=== PATIENT | female | born 1955 | race American Indian/Alaskan Native ===

== ENCOUNTER 2017-08-13 18:32 | Emergency (ER) | payer MEDICARE ==
[2017-08-13 20:25] LABS: BUN/Creatinine Ratio 22; Blood Urea Nitrogen 11 mg/dL (7-17); Calcium 9.1 mg/dL (8.4-10.2); Hemolysis Index 75
[2017-08-13 20:32] LABS: INR 1.15 (0.87-1.13)
[2017-08-13 21:20] LABS: Basophils % (Auto) 0.7 % (0.0-1.8); Eosinophils # (Auto) 0.1 K/mm3 (0.0-0.4); Eosinophils % (Auto) 1.9 % (0.0-4.3); Hematocrit 31.7 % (30.3-42.9); Lymphocytes % (Auto) 26.8 % (13.4-35.0); Mean Corpuscular HGB Conc 32 % (30-34); Mean Corpuscular Volume 79 fl (79-97); Monocytes # (Auto) 0.4 K/mm3 (0.0-0.8); Monocytes % (Auto) 5.8 % (0.0-7.3); Platelet Count 396 K/mm3 (140-440); Red Blood Count 4.02 M/mm3 (3.65-5.03); Red Cell Distribution Width 18.8 % (13.2-15.2)
[2017-08-13 21:25] LABS: Mean Corpuscular Hemoglobin 25 pg (28-32)
[2017-08-14] MEDS ORDERED: MORPHINE IM ONE (10:27)
[2017-08-14] MEDS ORDERED: ZOFRAN IM ONE (10:27)
--- NOTE | 2017-08-14 10:32 | Emergency Department Report ---
ED Back Pain/Injury HPI - General Chief Complaint: Extremity Injury, Lower Stated Complaint: RIGHT LOWER BACK PAIN Time Seen by Provider: 08/14/17 10:22 Source: patient, family Limitations: No Limitations - History of Present Illness Initial Comments: Patient is 61 years old female history of diabetes hypertension and pacemaker. Presented to the ER with lower back pain for the last 3 days. Patient stated that she woke up 3 days ago with lower back pain that radiated to her right leg. Patient denied any numbness or tingling sensation or weakness. No bowel or bladder incontinence. No fever and patient denied any recent injury. MD Complaint: back pain -: Gradual, days(s) Similar Symptoms Previously: Yes Place: home Radiation: right leg Severity: moderate Quality: sharp Consistency: intermittent Improves With: immobilization Worsens With: movement Context: unknown Associated Symptoms: denies other symptoms, difficulty walking (secondary to pain). denies: weakness, incontinence, fever/chills, headaches, abdominal pain , nausea/vomiting, shortness of breath - Related Data Allergies Allergy/AdvReac Type Severity Reaction Status Date / Time tramadol Allergy Unknown Verified 08/13/17 19:22 ED Review of Systems ROS: Stated complaint: RIGHT LOWER BACK PAIN Other details as noted in HPI Comment: All other systems reviewed and negative Constitutional: denies: chills, fever Respiratory: denies: cough, shortness of breath, SOB with exertion, SOB at rest Gastrointestinal: denies: abdominal pain, nausea, vomiting, diarrhea, constipation, hematemesis Musculoskeletal: back pain. denies: joint swelling, arthralgia, myalgia Neurological: denies: headache, weakness, numbness, paresthesias, confusion, abnormal gait, vertigo ED Past Medical Hx - Past Medical History Previous Medical History?: Yes Hx Diabetes: Yes Additional medical history: pacemaker,anemia - Surgical History Additional Surgical History: CABG - Social History Smoking Status: Never Smoker Substance Use Type: None ED Physical Exam - General Limitations: No Limitations General appearance: alert, in no apparent distress - Head Head exam: Present: atraumatic, normocephalic, normal inspection - Eye Eye exam: Present: normal appearance, PERRL - ENT ENT exam: Present: normal exam, normal orophraynx, mucous membranes moist - Neck Neck exam: Present: normal inspection, full ROM. Absent: tenderness, meningismus, lymphadenopathy, thyromegaly - Respiratory Respiratory exam: Present: normal lung sounds bilaterally. Absent: respiratory distress, wheezes, rales, rhonchi, chest wall tenderness - Cardiovascular Cardiovascular Exam: Present: regular rate, normal rhythm, normal heart sounds - GI/Abdominal GI/Abdominal exam: Present: soft, normal bowel sounds. Absent: distended, tenderness, guarding, rebound, rigid, organomegaly, mass, bruit, pulsatile mass , hernia - Extremities Exam Extremities exam: Present: normal inspection, full ROM, normal capillary refill. Absent: tenderness, pedal edema, calf tenderness - Back Exam Back exam: Present: normal inspection, tenderness, muscle spasm. Absent: CVA tenderness (R), CVA tenderness (L), paraspinal tenderness, vertebral tenderness - Neurological Exam Neurological exam: Present: alert, oriented X3, CN II-XII intact, normal gait, reflexes normal. Absent: motor sensory deficit - Skin Skin exam: Present: warm, intact, normal color ED Course Vital Signs 08/13/17 08/14/17 08/14/17 19:18 00:15 11:31 Temperature 98 F 98.4 F Pulse Rate 82 87 Respiratory 20 20 20 Rate Blood Pressure 131/88 98/64 O2 Sat by Pulse 100 100 Oximetry - Reevaluation(s) Reevaluation #1: 08/14/17 12:58 Patient stated that she is feeling much better after the pain medication. Patient is ambulating to the bathroom in no acute distress. ED Medical Decision Making - Lab Data Result diagrams: 08/13/17 20:56 08/13/17 19:52 - Radiology Data Radiology results: report reviewed Right hip x-ray and lumbosacral x-ray showed no acute abnormalities except for degenerative disease. - Medical Decision Making At this point there is no evidence of acute fracture or acute neurological deficit. I advised patient to follow up with her primary care physician for possible referral to A back surgeon. Critical care attestation.: If time is entered above; I have spent that time in minutes in the direct care of this critically ill patient, excluding procedure time. ED Disposition Clinical Impression: Acute back pain, Sciatica Disposition: - TO HOME OR SELFCARE Is pt being admited?: No Condition: Stable Instructions: Low Back Strain (ED), Sciatica (ED), Lumbar Radiculopathy (ED) Referrals: CORINNE WILKINSON MD [Primary Care Provider] - 3-5 Days
--- NOTE | 2017-08-14 11:18 | XRay Report ---
RIGHT HIP, 2 views: History: Right hip pain. The bony architecture is intact without evidence of fracture or dislocation. No significant soft tissue abnormality is seen. IMPRESSION: Normal right hip.
--- NOTE | 2017-08-14 11:19 | XRay Report ---
LUMBOSACRAL SPINE, 3 VIEWS: History: Back injury Findings: The vertebral bodies, disk spaces and posterior elements are intact. No compression deformity or malalignment. Mild degenerative disc disease and facet arthropathy are identified at all levels. The SI joints are symmetric and unremarkable. Impression: Mild lumbar spondylosis. No evidence for acute injury on x-ray.
[2017-08-14 14:20] VITALS: BP 108/66
== END 2017-08-14 14:39 | disposition home or self-care (01) ==
LOC: ED 18:32
DX: M54.41 Lumbago with sciatica, right side (principal); Z88.8 Allergy status to other drugs, medicaments and biological substances; E11.9 Type 2 diabetes mellitus without complications; Z95.818 Presence of other cardiac implants and grafts; D64.9 Anemia, unspecified; Z95.1 Presence of aortocoronary bypass graft
CPT/HCPCS: 36415; 72100; 73502; 80048; 85025; 85610; 96372; 99284; J2270; J2405

== ENCOUNTER 2017-10-01 16:56 | Inpatient (IN) | payer MEDICARE ==
[2017-10-01] MEDS ORDERED: ASPIRIN PO ONE (17:10)
[2017-10-01] MEDS ORDERED: NITROSTAT SL ONE (17:16)
[2017-10-01 18:24] LABS: Basophils % (Auto) 0.4 % (0.0-1.8); Eosinophils % (Auto) 0.4 % (0.0-4.3); Lymphocytes # (Auto) 2.2 K/mm3 (1.2-5.4); Lymphocytes % (Auto) 20.6 % (13.4-35.0); Mean Corpuscular HGB Conc 30 % (30-34); Mean Corpuscular Volume 76 fl (79-97); Monocytes # (Auto) 0.7 K/mm3 (0.0-0.8); Monocytes % (Auto) 6.4 % (0.0-7.3); Platelet Count 396 K/mm3 (140-440); Red Blood Count 2.31 M/mm3 (3.65-5.03)
[2017-10-01 18:25] LABS: BUN/Creatinine Ratio 32; Blood Urea Nitrogen 16 mg/dL (7-17); Hemolysis Index 2
[2017-10-01 18:34] LABS: Hemoglobin 5.3 gm/dl (10.1-14.3)
[2017-10-01 18:35] LABS: Hematocrit 17.7 % (30.3-42.9); Mean Corpuscular Hemoglobin 23 pg (28-32); Red Cell Distribution Width 22.8 % (13.2-15.2)
[2017-10-01 18:44] LABS: INR 2.63 (0.87-1.13)
[2017-10-01] MEDS ORDERED: NACL 0.9% 500 ML 500 ML IV ONE (19:33)
--- NOTE | 2017-10-01 19:45 | Emergency Department Report ---
ED General Adult HPI - General Chief complaint: Chest Pain Stated complaint: CP Time Seen by Provider: 10/01/17 19:12 Source: patient Mode of arrival: Ambulatory Limitations: No Limitations - History of Present Illness Initial comments: Patient is a 62-year-old asthmatic female who is presenting with chest discomfort. Patient states she's having for the past week exertional chest pain shortness of breath. Patient has had episodes of anemia in the past and has had several blood transfusions. Patient has [facility] and has not had any formal diagnosis OY her hemoglobin is so low. Patient denies any bloody stools dark tarry stools at this time. Severity scale (0 -10): 6 Improves with: none Worsens with: movement - Related Data Previous Rx's Medication Instructions Recorded Last Taken Type HYDROcodone/APAP 5-325 [[place] 1 each PO Q6HR PRN #14 tablet 08/14/17 Unknown Rx 5/325] Metaxalone [Skelaxin] 800 mg PO TID #30 tablet 08/14/17 Unknown Rx Ondansetron [Zofran Odt] 4 mg PO Q8HR PRN #14 tab.rapdis 08/14/17 Unknown Rx Prednisone [predniSONE ([place]) ER 40 mg PO QDAY #40 tablet. 08/14/17 Unknown Rx TAB] Allergies Allergy/AdvReac Type Severity Reaction Status Date / Time tramadol Allergy Unknown Verified 08/13/17 19:22 ED Review of Systems ROS: Stated complaint: CP Other details as noted in HPI Comment: All other systems reviewed and negative ED Past Medical Hx - Past Medical History Hx Diabetes: Yes Additional medical history: pacemaker,anemia - Surgical History Additional Surgical History: CABG - Social History Smoking Status: Never Smoker Substance Use Type: None - Medications Home Medications: Home Medications Medication Instructions Recorded Confirmed Last Taken Type HYDROcodone/APAP 5-325 [[place] 1 each PO Q6HR PRN #14 tablet 08/14/17 Unknown Rx 5/325] Metaxalone [Skelaxin] 800 mg PO TID #30 tablet 08/14/17 Unknown Rx Ondansetron [Zofran Odt] 4 mg PO Q8HR PRN #14 tab.rapdis 08/14/17 Unknown Rx Prednisone [predniSONE ([place]) ER 40 mg PO QDAY #40 tablet. 08/14/17 Unknown Rx TAB] ED Physical Exam - General Limitations: No Limitations General appearance: alert, in no apparent distress - Head Head exam: Present: atraumatic, normocephalic - Eye Eye exam: Present: normal appearance - ENT ENT exam: Present: mucous membranes moist - Neck Neck exam: Present: normal inspection - Respiratory Respiratory exam: Present: normal lung sounds bilaterally. Absent: respiratory distress, wheezes, rales - Cardiovascular Cardiovascular Exam: Present: regular rate, normal rhythm. Absent: systolic murmur, diastolic murmur, rubs, gallop - GI/Abdominal GI/Abdominal exam: Present: soft, normal bowel sounds - Extremities Exam Extremities exam: Present: normal inspection - Back Exam Back exam: Present: normal inspection - Neurological Exam Neurological exam: Present: alert, oriented X3 - Psychiatric Psychiatric exam: Present: normal affect, normal mood - Skin Skin exam: Present: warm, dry, intact, normal color. Absent: rash ED Course Vital Signs 10/01/17 10/01/17 17:07 18:33 Temperature 98.4 F 98.9 F Pulse Rate 111 H 100 H Respiratory 22 18 Rate Blood Pressure 159/78 Blood Pressure 92/57 [Left] O2 Sat by Pulse 96 100 Oximetry ED Medical Decision Making - Lab Data Result diagrams: 10/01/17 17:15 10/01/17 17:15 Lab Results 10/01/17 10/01/17 10/01/17 Range/Units 17:15 17:15 18:01 WBC 10.5 (4.5-11.0) K/mm3 RBC 2.31 L (3.65-5.03) M/mm3 Hgb 5.3 L* (10.1-14.3) gm/dl Hct 17.7 L* (30.3-42.9) % MCV 76 L (79-97) fl MCH 23 L (28-32) pg MCHC 30 (30-34) % RDW 22.8 H (13.2-15.2) % Plt Count 396 (140-440) K/mm3 Lymph % (Auto) 20.6 (13.4-35.0) % [place] % (Auto) 6.4 (0.0-7.3) % Eos % (Auto) 0.4 (0.0-4.3) % Baso % (Auto) 0.4 (0.0-1.8) % Lymph # 2.2 (1.2-5.4) K/mm3 [place] # 0.7 (0.0-0.8) K/mm3 Eos # 0.0 (0.0-0.4) K/mm3 Baso # 0.0 (0.0-0.1) K/mm3 Seg Neutrophils % 72.2 H (40.0-70.0) % Seg Neutrophils # 7.6 (1.8-7.7) K/mm3 PT 29.9 H (12.2-14.9) Sec. INR 2.63 H (0.87-1.13) Sodium 140 (137-145) mmol/L Potassium 3.5 L (3.6-5.0) mmol/L Chloride 100.1 (98-107) mmol/L Carbon Dioxide 21 L (22-30) mmol/L Anion Gap 22 mmol/L BUN 16 (7-17) mg/dL Creatinine 0.5 L (0.7-1.2) mg/dL Estimated GFR > 60 ml/min BUN/Creatinine Ratio 32 % Glucose 130 H (65-100) mg/dL Calcium 9.0 (8.4-10.2) mg/dL Troponin T < 0.010 (0.00-0.029) ng/mL NT-Pro-B Natriuret Pep 56.55 (0-900) pg/mL - EKG Data -: EKG Interpreted by Me - EKG Data Interpretation: other (EKG shows sinus rhythm rate of 90 axis is leftward does a right bundle-branch block and a left anterior fascicular block. There is no ST elevations or depressions present time interpretation 1700) - Medical Decision Making Patient is a 62-year-old [place] female past medical history of coronary disease and anemia who is presenting with some chest discomfort shortness of breath on exertion. Patient has a hemoglobin of 5.2. Patient had a IV line was started via ultrasound by me reveals a 20 in the antecubital fossa. Patient had a blood transfusion ordered will be admitted at this time to Dr. Reeves. Critical Care Time: Yes Critical care time in (mins) excluding proc time.: 30 Critical care attestation.: If time is entered above; I have spent that time in minutes in the direct care of this critically ill patient, excluding procedure time. ED Disposition Clinical Impression: Symptomatic anemia Disposition: OP ADMIT IP TO THIS HOSP Is pt being admited?: Yes Does the pt Need Aspirin: No Condition: Poor
--- NOTE | 2017-10-01 20:17 | XRay Report ---
FINAL REPORT EXAM: XR CHEST ROUTINE 2V HISTORY: SOB TECHNIQUE: PA and lateral views of the chest PRIORS: None. FINDINGS: Lines, tubes, and devices: Median sternotomy wires, a prosthetic cardiac valve, and a 3 lead left subclavian pacemaker are noted. Lungs and pleura: Trachea is normal in position. Lungs are clear of infiltrate, pleural effusion, vascular congestion, or pneumothorax. Cardiomediastinal silhouette: Cardiac and mediastinal silhouettes are unremarkable. Other: Bony structures are intact. IMPRESSION: No acute cardiopulmonary process seen.
--- NOTE | 2017-10-01 23:42 | Event Note ---
Date: 10/01/17 See dictated H/p in reports Acute symptomatic anemia Chest pain Asthma muscle spasms CAD DVT prophylaxis
[2017-10-02] MEDS ORDERED: NACL 0.9% 500 ML 500 ML IV ONE (03:00)
[2017-10-02] MEDS ORDERED: ZOFRAN IV PRN (04:02)
[2017-10-02] MEDS ORDERED: DULCOLAX PR PRN (04:02)
[2017-10-02] MEDS ORDERED: MORPHINE IV PRN (04:02)
[2017-10-02] MEDS ORDERED: DILAUDID IV PRN (04:02)
[2017-10-02] MEDS ORDERED: TYLENOL PO PRN (04:02)
[2017-10-02] MEDS ORDERED: MILK OF MAGNESIA PO PRN (04:02)
[2017-10-02] MEDS ORDERED: AMBIEN PO PRN (04:02)
--- NOTE | 2017-10-02 08:39 | History and Physical Report ---
CHIEF COMPLAINT: Left-sided chest pain. HISTORY OF PRESENT ILLNESS: This 62-year-old history of asthma, . The patient had Apparently had upper and lower endoscopy but exact cause could not be found. The patient has hysterectomy, so there is no reason for vaginal bleeding . The patient does not know the cause of her . Stools are brown. PAST MEDICAL HISTORY: Significant for asthma and diabetes . PAST SURGICAL HISTORY: Coronary artery bypass . SOCIAL HISTORY: Does not smoke . FAMILY HISTORY: Hypertension . REVIEW OF SYSTEMS: Significant for chest pain and shortness of breath on exertion. Otherwise, review of systems essentially are negative. No wheezing. A 14-point review of systems done. PHYSICAL EXAMINATION: GENERAL: Elderly female, cooperative during the exam, pale. VITAL SIGNS: Blood pressure is 159/78, temperature is 98.4, pulse is 111, sats are 96%. HEENT: Unremarkable except for conjunctival . NECK: Supple, no lymphadenopathy, no thyromegaly. LUNGS: Clear to auscultation and percussion. . CARDIOVASCULAR: S1, S2 heard. No gallop, no murmur, no rub. Apical impulse in left fifth intercostal space and midclavicular line. ABDOMEN: Soft and benign. No hepatosplenomegaly. No guarding, no rigidity. Hernial orifices are normal. EXTREMITIES: Good pedal pulses. No pedal edema. CENTRAL NERVOUS SYSTEM: Alert and oriented x 4, nonfocal exam. SKIN: Normal. LABORATORY DATA: White count is 10,700, H and H is 10.5 and , platelet count is 396,000. Protime is 29.9, INR is 2.63. Sodium is 140, potassium is 3.5, chloride is 100, bicarbonate is 21, BUN and creatinine 16 and 0.5, glucose is 130, calcium is 9.0. BNP is 56.5. Chest x-ray is normal. No acute findings. ASSESSMENT AND PLAN: 1. Acute anemia, symptomatic. Transfuse 2 units of blood. Iron studies ordered. The patient GI so that we can follow up with GI as outpatient. No vaginal bleeding. The patient had hysterectomy. 2. Asthma. Continue bronchodilators as necessary. 3. Coronary artery disease. The patient to be restarted on aspirin. 4. Muscle spasms. Continue Skelaxin. 5. Deep venous thrombosis prophylaxis, Lovenox 40 mg subcutaneous daily. Also, Hematology/Oncology consult requested. The patient to follow up with Hematology/Oncology and GI as outpatient. JOB# [id number] MIKE/MARNI
[2017-10-02] MEDS: MIRALAX 3350 PO SCH (10:05)
[2017-10-02] MEDS: PEPCID IV SCH ×2 (10:05→21:47)
[2017-10-02] MEDS: NACL 0.9% 1000 ML 1,000 ML IV SCH (10:13)
[2017-10-02 13:06] LABS: Basophils % (Auto) 0.4 % (0.0-1.8); Eosinophils # (Auto) 0.1 K/mm3 (0.0-0.4); Eosinophils % (Auto) 0.7 % (0.0-4.3); Hematocrit 22.1 % (30.3-42.9); Hemoglobin 6.9 gm/dl (10.1-14.3); Lymphocytes # (Auto) 2.1 K/mm3 (1.2-5.4); Lymphocytes % (Auto) 20.4 % (13.4-35.0); Mean Corpuscular HGB Conc 31 % (30-34); Mean Corpuscular Volume 82 fl (79-97); Monocytes # (Auto) 0.8 K/mm3 (0.0-0.8); Monocytes % (Auto) 7.4 % (0.0-7.3); Platelet Count 292 K/mm3 (140-440); Red Blood Count 2.69 M/mm3 (3.65-5.03)
[2017-10-02 13:11] LABS: Mean Corpuscular Hemoglobin 26 pg (28-32); Red Cell Distribution Width 22.2 % (13.2-15.2)
[2017-10-02 13:20] LABS: Alanine Aminotransferase 9 units/L (7-56); Albumin 3.1 g/dL (3.9-5); BUN/Creatinine Ratio 35; Blood Urea Nitrogen 14 mg/dL (7-17); Calcium 8.2 mg/dL (8.4-10.2); Hemolysis Index 0
[2017-10-02] MEDS ORDERED: FERRLECIT 125 MG in NACL 0.9% 100 ML IV ONE (15:00)
[2017-10-02] MEDS ORDERED: NACL 0.9% 500 ML 500 ML IV SCH (16:46)
--- NOTE | 2017-10-02 16:55 | Progress Note ---
Assessment and Plan Assessment and plan: Patient is a 62-year-old woman with history of type 2 diabetes mellitus, hypertension, permanent pacemaker, coronary artery disease status post CABG, Aortic mechanical valve replacement in 2008 on Coumadin and chronic blood loss anemia who had extensive work up in the past including colonoscopy, EGD and even a pill camera but no source was identified ([place] ) who presented to [facility] ED with fatigue and bilateral chest pains. She was found to have hemoglobin of 5.3 2v CXR reported as no acute findings -Acute on chronic blood loss anemia: ordered FOBT, she has constipation, ordered enema but she refused, elected to have miralax, transfuse more blood. -Mechanical Aortic Valve on Coumadin, w/o gross signs of bleeding: very complex medical decision of whether Coumadin should be stopped. -Hypokalemia: replete and recheck -DM type 2, diet controlled: add SSI History Interval history: Patient was seen and examined. Follow-up on current diagnosis of fatigue and chest pains which are improved. Overnight uneventful. Patient denies any shortness breath, nausea/vomiting or severe headaches. Imaging, nursing note, chart, labs and old chart reviewed. Discussed with patient. Hospitalist Physical - Physical exam Narrative exam: GEN: WDWN, NAD, AWAKE, ALERT, ORIENTATED x 3 HEENT: NCAT, EOMI, PERRL, OP Clear NECK: supple, no adenopathy, no thyromegaly, no JVD CVS/HEART: RRR, NORMAL S1S2, pulses present bilaterally CHEST/LUNGS: CTA B, Symmetrical chest expansion, good air entry bilaterally GI/Abdomen: soft, NTND, good bowel sounds, no guarding or rebound /Bladder: no suprapubic tenderness, no CVA or paraspinal tenderness EXT/Skin: no c/c/e, no obvious rash MSK: FROM x 4 Neuro: CN 2-12 grossly intact, no new focal deficits Psych: calm - Constitutional Vitals: Temp Pulse Resp BP Pulse Ox 98.3 F 94 H 20 108/60 96 10/02/17 08:44 10/02/17 10:00 10/02/17 10:00 10/02/17 08:44 10/02/17 10:00 Results - Labs CBC & Chem 7: 10/02/17 12:36 10/02/17 12:36 Labs: Laboratory Last Values WBC 10.4 K/mm3 (4.5-11.0) 10/02/17 12:36 RBC 2.69 M/mm3 (3.65-5.03) L 10/02/17 12:36 Hgb 6.9 gm/dl (10.1-14.3) L 10/02/17 12:36 Hct 22.1 % (30.3-42.9) L 10/02/17 12:36 MCV 82 fl (79-97) 10/02/17 12:36 MCH 26 pg (28-32) L 10/02/17 12:36 MCHC 31 % (30-34) 10/02/17 12:36 RDW 22.2 % (13.2-15.2) H 10/02/17 12:36 Plt Count 292 K/mm3 (140-440) 10/02/17 12:36 Lymph % (Auto) 20.4 % (13.4-35.0) 10/02/17 12:36 [place] % (Auto) 7.4 % (0.0-7.3) H 10/02/17 12:36 Eos % (Auto) 0.7 % (0.0-4.3) 10/02/17 12:36 Baso % (Auto) 0.4 % (0.0-1.8) 10/02/17 12:36 Lymph # 2.1 K/mm3 (1.2-5.4) 10/02/17 12:36 [place] # 0.8 K/mm3 (0.0-0.8) 10/02/17 12:36 Eos # 0.1 K/mm3 (0.0-0.4) 10/02/17 12:36 Baso # 0.0 K/mm3 (0.0-0.1) 10/02/17 12:36 Seg Neutrophils % 71.1 % (40.0-70.0) H 10/02/17 12:36 Seg Neutrophils # 7.4 K/mm3 (1.8-7.7) 10/02/17 12:36 PT 29.9 Sec. (12.2-14.9) H 10/01/17 18:01 INR 2.63 (0.87-1.13) H 10/01/17 18:01 Sodium 137 mmol/L (137-145) 10/02/17 12:36 Potassium 3.3 mmol/L (3.6-5.0) L 10/02/17 12:36 Chloride 99.9 mmol/L (98-107) 10/02/17 12:36 Carbon Dioxide 24 mmol/L (22-30) 10/02/17 12:36 Anion Gap 16 mmol/L 10/02/17 12:36 BUN 14 mg/dL (7-17) 10/02/17 12:36 Creatinine 0.4 mg/dL (0.7-1.2) L 10/02/17 12:36 Estimated GFR > 60 ml/min 10/02/17 12:36 BUN/Creatinine Ratio 35 % 10/02/17 12:36 Glucose 157 mg/dL (65-100) H 10/02/17 12:36 Hemoglobin A1c 5.2 % (4-6) 10/02/17 12:36 Calcium 8.2 mg/dL (8.4-10.2) L 10/02/17 12:36 Total Bilirubin 0.30 mg/dL (0.1-1.2) 10/02/17 12:36 AST 12 units/L (5-40) 10/02/17 12:36 ALT 9 units/L (7-56) 10/02/17 12:36 Alkaline Phosphatase 49 units/L (35-129) 10/02/17 12:36 Lactate Dehydrogenase 223 units/L (91-180) H 10/02/17 12:36 Troponin T < 0.010 ng/mL (0.00-0.029) 10/02/17 12:36 NT-Pro-B Natriuret Pep 56.55 pg/mL (0-900) 10/01/17 17:15 Total Protein 5.7 g/dL (6.3-8.2) L 10/02/17 12:36 Albumin 3.1 g/dL (3.9-5) L 10/02/17 12:36 Albumin/Globulin Ratio 1.2 % 10/02/17 12:36 Blood Type O POSITIVE 10/01/17 20:11 Antibody Screen Negative 10/01/17 20:11 Crossmatch See Detail 10/01/17 20:11
[2017-10-02] MEDS ORDERED: K-DUR PO ONE (17:00)
[2017-10-02] MEDS ORDERED: COUMADIN NO DOSE TODAY PO ONE (17:08)
--- NOTE | 2017-10-02 17:54 | Gastroenterology Consultation ---
History of Present Illness - Reason for Consult Consult date: 10/02/17 Anemia Requesting physician: FOSTER LOPEZ - History of Present Illness The patient is a pleasant 62 yo female admitted with symptomatic (SOB, chest pain) severe anemia. She has a long 8-year history of this, managed by Heme/GI in [place], but had recently moved to [place], and she did not have an MD to check labs or transfuse. She has had anemia (iron-def) for 8 years and has had an extensive GI w/u (EGDs, colons, pill cams etc) despite no gross bleeding. She has been on iron PO, but this has not kept her from needing IV iron about every 6-12 months. She denies melena, hematemesis, N/V, anorexia, or weight loss. She has had no prior GI surgeries, and has had a hysterectomy. She has no family hx of anemia or bleeding disorders. She can not recall a prior bone marrow biopsy. Past History Past Medical History: anemia (chronic iron def anemia requiring transfusion), diabetes Past Surgical History: CABG, hysterectomy, Other (pacemaker) Social history: denies: smoking, alcohol abuse Family history: no significant family history Medications and Allergies Allergies Allergy/AdvReac Type Severity Reaction Status Date / Time tramadol Allergy Unknown Verified 08/13/17 19:22 Home Medications Medication Instructions Recorded Confirmed Last Taken Type Metaxalone [Skelaxin] 800 mg PO TID #30 tablet 08/14/17 10/02/17 1 Month Ago Rx ~09/01/17 Ondansetron [Zofran Odt] 4 mg PO Q8HR PRN #14 tab.rapdis 08/14/17 10/02/17 1 Month Ago Rx ~09/01/17 Active Meds: Active Medications Acetaminophen (Tylenol) 650 mg PO Q4H PRN PRN Reason: Pain MILD(1-3)/Fever >100.5/[facility] Bisacodyl (Dulcolax) 10 mg [place] QDAY PRN PRN Reason: Constipation unrelieved by MOM Famotidine (Pepcid) 20 mg IV BID [facility] Last Admin: 10/02/17 10:05 Dose: 20 mg Hydromorphone HCl (Dilaudid) 0.5 mg IV Q3H PRN PRN Reason: Pain , Severe (7-10) Sodium Chloride (Nacl 0.9% 1000 Ml) 1,000 mls @ 42 mls/hr IV DIRECT [facility] Last Admin: 10/02/17 10:13 Dose: 42 mls/hr Sodium Chloride (Nacl 0.9% 500 Ml) 500 mls @ 0 mls/hr IV ONCE [facility] PRN Reason: As Directed Stop: 10/02/17 23:00 Magnesium Hydroxide (Milk Of Magnesia) 30 ml PO Q4H PRN PRN Reason: Constipation Morphine Sulfate (Morphine) 2 mg IV Q4H PRN PRN Reason: Pain, Moderate (4-6) Ondansetron HCl (Zofran) 4 mg IV Q8H PRN PRN Reason: N/V unrelieved by Reglan Polyethylene Glycol (Miralax [id number]) 17 gm PO QDAY [facility] Last Admin: 10/02/17 10:05 Dose: 17 gm Warfarin Sodium (Coumadin Pharmacy To Dose) 1 each PO PKCONSULT [facility] PRN Reason: Protocol Warfarin Sodium (Coumadin) 7.5 mg PO DAILY@1700 [facility] Zolpidem Tartrate (Ambien) 5 mg PO QHS PRN PRN Reason: Insomnia I HAVE REVIEWED AND RECONCILED THE PATIENT'S MEDICATIONS Review of Systems - Review of Systems All systems: negative (as noted in the HPI.) Exam - Constitutional Vital Signs: Temp Pulse Resp BP Pulse Ox 98.3 F 94 H 20 108/60 96 10/02/17 08:44 10/02/17 10:00 10/02/17 10:00 10/02/17 08:44 10/02/17 10:00 General appearance: no acute distress - EENT Eyes: PERRL, EOM intact ENT: hearing intact, clear oral mucosa - Neck Neck: supple, normal ROM - Respiratory Respiratory effort: normal, other (Pacemaker present) Respiratory: bilateral: CTA - Cardiovascular Rhythm: regular Heart Sounds: Present: S1 & S2 Extremities: no ischemia, No edema - Gastrointestinal General gastrointestinal: Present: soft, non-tender, non-distended - Integumentary Integumentary: Present: clear, warm, dry - Neurologic Neurological: alert and oriented x3 - Labs CBC & Chem 7: 10/02/17 12:36 10/02/17 12:36 Lab Results: Laboratory Results - last 24 hr 10/01/17 10/01/17 10/01/17 17:15 17:15 18:01 WBC 10.5 RBC 2.31 L Hgb 5.3 L* Hct 17.7 L* MCV 76 L MCH 23 L MCHC 30 RDW 22.8 H Plt Count 396 Lymph % (Auto) 20.6 [place] % (Auto) 6.4 Eos % (Auto) 0.4 Baso % (Auto) 0.4 Lymph # 2.2 [place] # 0.7 Eos # 0.0 Baso # 0.0 Seg Neutrophils % 72.2 H Seg Neutrophils # 7.6 PT 29.9 H INR 2.63 H Sodium 140 Potassium 3.5 L Chloride 100.1 Carbon Dioxide 21 L Anion Gap 22 BUN 16 Creatinine 0.5 L Estimated GFR > 60 BUN/Creatinine Ratio 32 Glucose 130 H Hemoglobin A1c Calcium 9.0 Ferritin Total Bilirubin AST ALT Alkaline Phosphatase Lactate Dehydrogenase Troponin T < 0.010 NT-Pro-B Natriuret Pep 56.55 Total Protein Albumin Albumin/Globulin Ratio Blood Type Antibody Screen Crossmatch 10/01/17 10/01/17 10/01/17 20:11 20:11 22:58 WBC RBC Hgb Hct MCV MCH MCHC RDW Plt Count Lymph % (Auto) [place] % (Auto) Eos % (Auto) Baso % (Auto) Lymph # [place] # Eos # Baso # Seg Neutrophils % Seg Neutrophils # PT INR Sodium Potassium Chloride Carbon Dioxide Anion Gap BUN Creatinine Estimated GFR BUN/Creatinine Ratio Glucose Hemoglobin A1c Calcium Ferritin Total Bilirubin AST ALT Alkaline Phosphatase Lactate Dehydrogenase Troponin T < 0.010 < 0.010 NT-Pro-B Natriuret Pep Total Protein Albumin Albumin/Globulin Ratio Blood Type O POSITIVE Antibody Screen Negative Crossmatch See Detail 10/02/17 10/02/17 10/02/17 12:36 12:36 12:36 WBC 10.4 RBC 2.69 L Hgb 6.9 L Hct 22.1 L MCV 82 MCH 26 L MCHC 31 RDW 22.2 H Plt Count 292 Lymph % (Auto) 20.4 [place] % (Auto) 7.4 H Eos % (Auto) 0.7 Baso % (Auto) 0.4 Lymph # 2.1 [place] # 0.8 Eos # 0.1 Baso # 0.0 Seg Neutrophils % 71.1 H Seg Neutrophils # 7.4 PT INR Sodium 137 Potassium 3.3 L Chloride 99.9 Carbon Dioxide 24 Anion Gap 16 BUN 14 Creatinine 0.4 L Estimated GFR > 60 BUN/Creatinine Ratio 35 Glucose 157 H Hemoglobin A1c 5.2 Calcium 8.2 L Ferritin Total Bilirubin 0.30 AST 12 ALT 9 Alkaline Phosphatase 49 Lactate Dehydrogenase Troponin T NT-Pro-B Natriuret Pep Total Protein 5.7 L Albumin 3.1 L Albumin/Globulin Ratio 1.2 Blood Type Antibody Screen Crossmatch 10/02/17 10/02/17 10/02/17 12:36 12:36 16:44 WBC RBC Hgb Hct MCV MCH MCHC RDW Plt Count Lymph % (Auto) [place] % (Auto) Eos % (Auto) Baso % (Auto) Lymph # [place] # Eos # Baso # Seg Neutrophils % Seg Neutrophils # PT INR Sodium Potassium Chloride Carbon Dioxide Anion Gap BUN Creatinine Estimated GFR BUN/Creatinine Ratio Glucose Hemoglobin A1c Calcium Ferritin Total Bilirubin AST ALT Alkaline Phosphatase Lactate Dehydrogenase 223 H Troponin T < 0.010 < 0.010 NT-Pro-B Natriuret Pep Total Protein Albumin Albumin/Globulin Ratio Blood Type Antibody Screen Crossmatch 10/02/17 16:44 WBC RBC Hgb Hct MCV MCH MCHC RDW Plt Count Lymph % (Auto) [place] % (Auto) Eos % (Auto) Baso % (Auto) Lymph # [place] # Eos # Baso # Seg Neutrophils % Seg Neutrophils # PT INR Sodium Potassium Chloride Carbon Dioxide Anion Gap BUN Creatinine Estimated GFR BUN/Creatinine Ratio Glucose Hemoglobin A1c Calcium Ferritin 20.3 Total Bilirubin AST ALT Alkaline Phosphatase Lactate Dehydrogenase Troponin T NT-Pro-B Natriuret Pep Total Protein Albumin Albumin/Globulin Ratio Blood Type Antibody Screen Crossmatch Assessment and Plan - Patient Problems (1) Iron deficiency anemia Current Visit: Yes Status: Acute Qualifiers: Iron deficiency anemia type: unspecified iron deficiency Qualified Code(s) : D50.9 - Iron deficiency anemia, unspecified Plan to address problem: - Recurrent anemia with multiple prior GI studies and no gross losses. Dx 8 years ago, and multiple iron infusions/blood transfusion. - Have no plans for inpatient endoscopy since stable; will have the patient f/u in the clinic in a few weeks, and review the records from [place]. - OK to d/c the patient home on PO iron/MVI and with Heme f/u (has seen Dr Dickey already). - Will sign off; please call if needed; my card to contact office given to the patient.
[2017-10-02 20:19] LABS: % Iron Saturation 12.27 %
--- NOTE | 2017-10-02 22:40 | Hem/Onc Consultation ---
History of Present Illness - Reason for Consult Consult date: 10/02/17 - History of Present Illness 62 year old lady. States she had a mechanical heart valve. Is on coumadin for that. Has had several episodes of GI bleeds. Has had 4-5 units of PRBC. Has EGD and colonoscopy and pill cam that was negative. She also received IV iron. She relocated from [place] to [place] and has not seen any act english tutor. Past History Past Medical History: anemia (chronic iron def anemia requiring transfusion), diabetes Past Surgical History: CABG, hysterectomy, Other (pacemaker) Social history: denies: smoking, alcohol abuse Family history: no significant family history Medications and Allergies Allergies Allergy/AdvReac Type Severity Reaction Status Date / Time tramadol Allergy Unknown Verified 08/13/17 19:22 Home Medications Medication Instructions Recorded Confirmed Last Taken Type Metaxalone [Skelaxin] 800 mg PO TID #30 tablet 08/14/17 10/02/17 1 Month Ago Rx ~09/01/17 Ondansetron [Zofran Odt] 4 mg PO Q8HR PRN #14 tab.rapdis 08/14/17 10/02/17 1 Month Ago Rx ~09/01/17 Active Meds: Active Medications Acetaminophen (Tylenol) 650 mg PO Q4H PRN PRN Reason: Pain MILD(1-3)/Fever >100.5/[facility] Bisacodyl (Dulcolax) 10 mg [place] QDAY PRN PRN Reason: Constipation unrelieved by MOM Famotidine (Pepcid) 20 mg IV BID [facility] Last Admin: 10/02/17 21:47 Dose: 20 mg Hydromorphone HCl (Dilaudid) 0.5 mg IV Q3H PRN PRN Reason: Pain , Severe (7-10) Sodium Chloride (Nacl 0.9% 1000 Ml) 1,000 mls @ 42 mls/hr IV DIRECT [facility] Last Admin: 10/02/17 10:13 Dose: 42 mls/hr Sodium Chloride (Nacl 0.9% 500 Ml) 500 mls @ 0 mls/hr IV ONCE [facility] PRN Reason: As Directed Stop: 10/02/17 23:00 Magnesium Hydroxide (Milk Of Magnesia) 30 ml PO Q4H PRN PRN Reason: Constipation Morphine Sulfate (Morphine) 2 mg IV Q4H PRN PRN Reason: Pain, Moderate (4-6) Ondansetron HCl (Zofran) 4 mg IV Q8H PRN PRN Reason: N/V unrelieved by Reglan Polyethylene Glycol (Miralax [id number]) 17 gm PO QDAY [facility] Last Admin: 10/02/17 10:05 Dose: 17 gm Warfarin Sodium (Coumadin Pharmacy To Dose) 1 each PO PKCONSULT [facility] PRN Reason: Protocol Warfarin Sodium (Coumadin) 7.5 mg PO DAILY@1700 [facility] Zolpidem Tartrate (Ambien) 5 mg PO QHS PRN PRN Reason: Insomnia Review of Systems All systems: negative (fatigue) Exam - Constitutional Vitals: Last Vital Signs Temp 98.6 F 10/02/17 20:00 Pulse 83 10/02/17 20:00 Resp 18 10/02/17 20:00 BP 102/64 10/02/17 20:00 Pulse Ox 99 10/02/17 20:00 Pain Intensity (0-10): denies any pain General appearance: no acute distress - EENT Eyes: PERRL ENT: hearing intact Lymph node exam: negative cervical - Neck Neck: supple - Respiratory Respiratory effort: Positive: normal Respiratory: bilateral: CTA - Cardiovascular Rhythm: regular Heart Sounds: Present: S1 & S2 Extremities: no ischemia - Gastrointestinal General gastrointestinal: Present: soft - Integumentary Integumentary: clear, warm - Musculoskeletal Musculoskeletal: strength equal bilaterally - Neurologic Neurologic: CNII-XII intact - Psychiatric Psychiatric: appropriate mood/affect Results - Labs lab Results: Laboratory Results - last 24 hr 10/01/17 10/01/17 10/02/17 20:11 22:58 12:36 WBC 10.4 RBC 2.69 L Hgb 6.9 L Hct 22.1 L MCV 82 MCH 26 L MCHC 31 RDW 22.2 H Plt Count 292 Lymph % (Auto) 20.4 [place] % (Auto) 7.4 H Eos % (Auto) 0.7 Baso % (Auto) 0.4 Lymph # 2.1 [place] # 0.8 Eos # 0.1 Baso # 0.0 Seg Neutrophils % 71.1 H Seg Neutrophils # 7.4 Sodium Potassium Chloride Carbon Dioxide Anion Gap BUN Creatinine Estimated GFR BUN/Creatinine Ratio Glucose Hemoglobin A1c Calcium Iron TIBC % Saturation Transferrin Ferritin Total Bilirubin AST ALT Alkaline Phosphatase Lactate Dehydrogenase Troponin T < 0.010 Total Protein Albumin Albumin/Globulin Ratio Vitamin B12 Folate Blood Type O POSITIVE Antibody Screen Negative Crossmatch See Detail 10/02/17 10/02/17 10/02/17 12:36 12:36 12:36 WBC RBC Hgb Hct MCV MCH MCHC RDW Plt Count Lymph % (Auto) [place] % (Auto) Eos % (Auto) Baso % (Auto) Lymph # [place] # Eos # Baso # Seg Neutrophils % Seg Neutrophils # Sodium 137 Potassium 3.3 L Chloride 99.9 Carbon Dioxide 24 Anion Gap 16 BUN 14 Creatinine 0.4 L Estimated GFR > 60 BUN/Creatinine Ratio 35 Glucose 157 H Hemoglobin A1c 5.2 Calcium 8.2 L Iron 33 L TIBC 269 % Saturation 12.27 Transferrin 229 Ferritin Total Bilirubin 0.30 AST 12 ALT 9 Alkaline Phosphatase 49 Lactate Dehydrogenase Troponin T Total Protein 5.7 L Albumin 3.1 L Albumin/Globulin Ratio 1.2 Vitamin B12 Folate Blood Type Antibody Screen Crossmatch 10/02/17 10/02/17 10/02/17 12:36 12:36 16:44 WBC RBC Hgb Hct MCV MCH MCHC RDW Plt Count Lymph % (Auto) [place] % (Auto) Eos % (Auto) Baso % (Auto) Lymph # [place] # Eos # Baso # Seg Neutrophils % Seg Neutrophils # Sodium Potassium Chloride Carbon Dioxide Anion Gap BUN Creatinine Estimated GFR BUN/Creatinine Ratio Glucose Hemoglobin A1c Calcium Iron TIBC % Saturation Transferrin Ferritin Total Bilirubin AST ALT Alkaline Phosphatase Lactate Dehydrogenase 223 H Troponin T < 0.010 < 0.010 Total Protein Albumin Albumin/Globulin Ratio Vitamin B12 Folate Blood Type Antibody Screen Crossmatch 10/02/17 10/02/17 10/02/17 16:44 16:44 16:44 WBC RBC Hgb Hct MCV MCH MCHC RDW Plt Count Lymph % (Auto) [place] % (Auto) Eos % (Auto) Baso % (Auto) Lymph # [place] # Eos # Baso # Seg Neutrophils % Seg Neutrophils # Sodium Potassium Chloride Carbon Dioxide Anion Gap BUN Creatinine Estimated GFR BUN/Creatinine Ratio Glucose Hemoglobin A1c Calcium Iron TIBC % Saturation Transferrin Ferritin 20.3 Total Bilirubin AST ALT Alkaline Phosphatase Lactate Dehydrogenase Troponin T Total Protein Albumin Albumin/Globulin Ratio Vitamin B12 519.6 Folate 14.77 Blood Type Antibody Screen Crossmatch Assessment and Plan - Patient Problems (1) Iron deficiency anemia Current Visit: Yes Status: Acute Qualifiers: Iron deficiency anemia type: unspecified iron deficiency Qualified Code(s) : D50.9 - Iron deficiency anemia, unspecified Plan to address problem: Order iron panel. Received IV iron. Will give IV iron. Needs outpatient follow up. Gi eval. Transfuse PRBC.
[2017-10-03 07:18] LABS: Basophils % (Auto) 0.3 % (0.0-1.8); Eosinophils # (Auto) 0.2 K/mm3 (0.0-0.4); Eosinophils % (Auto) 1.8 % (0.0-4.3); Hematocrit 23.9 % (30.3-42.9); Hemoglobin 7.7 gm/dl (10.1-14.3); Lymphocytes # (Auto) 1.5 K/mm3 (1.2-5.4); Lymphocytes % (Auto) 17.6 % (13.4-35.0); Mean Corpuscular HGB Conc 33 % (30-34); Mean Corpuscular Hemoglobin 27 pg (28-32); Mean Corpuscular Volume 82 fl (79-97); Monocytes # (Auto) 0.6 K/mm3 (0.0-0.8); Monocytes % (Auto) 7.4 % (0.0-7.3); Platelet Count 249 K/mm3 (140-440)
[2017-10-03 07:20] LABS: Red Cell Distribution Width 20.9 % (13.2-15.2)
[2017-10-03] MEDS: NACL 0.9% 1000 ML 1,000 ML IV SCH (07:25)
[2017-10-03 07:40] LABS: INR 1.9 (0.87-1.13)
[2017-10-03 07:48] LABS: BUN/Creatinine Ratio 22; Blood Urea Nitrogen 11 mg/dL (7-17); Calcium 7.7 mg/dL (8.4-10.2); Hemolysis Index 5
--- NOTE | 2017-10-03 09:04 | Hem/Onc Progress Note ---
Assessment and Plan CBC improved. She can go home and follow up with Dr. Dickey. B12 folate levels within normal limits Subjective Date of service: 10/03/17 Interval history: Patient feels better. Hungry. Received IV iron yesterday. Objective - Constitutional Vitals: Last Vital Signs Temp 98.4 F 10/03/17 04:36 Pulse 76 10/03/17 04:36 Resp 18 10/03/17 04:36 BP 122/80 10/03/17 04:36 Pulse Ox 99 10/03/17 04:36 Pain Intensity (0-10): denies any pain General appearance: no acute distress Performance status: 1-light work, ambulatory - Neck Neck: supple - Respiratory Respiratory effort: Positive: normal Respiratory: bilateral: CTA - Cardiovascular Rhythm: regular - Gastrointestinal General gastrointestinal: Present: soft - Labs Lab Results: Laboratory Results - last 24 hr 10/01/17 10/02/17 10/02/17 20:11 12:36 12:36 WBC 10.4 RBC 2.69 L Hgb 6.9 L Hct 22.1 L MCV 82 MCH 26 L MCHC 31 RDW 22.2 H Plt Count 292 Lymph % (Auto) 20.4 [place] % (Auto) 7.4 H Eos % (Auto) 0.7 Baso % (Auto) 0.4 Lymph # 2.1 [place] # 0.8 Eos # 0.1 Baso # 0.0 Seg Neutrophils % 71.1 H Seg Neutrophils # 7.4 PT INR Sodium 137 Potassium 3.3 L Chloride 99.9 Carbon Dioxide 24 Anion Gap 16 BUN 14 Creatinine 0.4 L Estimated GFR > 60 BUN/Creatinine Ratio 35 Glucose 157 H Hemoglobin A1c Calcium 8.2 L Iron TIBC % Saturation Transferrin Ferritin Total Bilirubin 0.30 AST 12 ALT 9 Alkaline Phosphatase 49 Lactate Dehydrogenase Troponin T Total Protein 5.7 L Albumin 3.1 L Albumin/Globulin Ratio 1.2 Vitamin B12 Folate Blood Type O POSITIVE Antibody Screen Negative Crossmatch See Detail 10/02/17 10/02/17 10/02/17 12:36 12:36 12:36 WBC RBC Hgb Hct MCV MCH MCHC RDW Plt Count Lymph % (Auto) [place] % (Auto) Eos % (Auto) Baso % (Auto) Lymph # [place] # Eos # Baso # Seg Neutrophils % Seg Neutrophils # PT INR Sodium Potassium Chloride Carbon Dioxide Anion Gap BUN Creatinine Estimated GFR BUN/Creatinine Ratio Glucose Hemoglobin A1c 5.2 Calcium Iron 33 L TIBC 269 % Saturation 12.27 Transferrin 229 Ferritin Total Bilirubin AST ALT Alkaline Phosphatase Lactate Dehydrogenase Troponin T < 0.010 Total Protein Albumin Albumin/Globulin Ratio Vitamin B12 Folate Blood Type Antibody Screen Crossmatch 10/02/17 10/02/17 10/02/17 12:36 16:44 16:44 WBC RBC Hgb Hct MCV MCH MCHC RDW Plt Count Lymph % (Auto) [place] % (Auto) Eos % (Auto) Baso % (Auto) Lymph # [place] # Eos # Baso # Seg Neutrophils % Seg Neutrophils # PT INR Sodium Potassium Chloride Carbon Dioxide Anion Gap BUN Creatinine Estimated GFR BUN/Creatinine Ratio Glucose Hemoglobin A1c Calcium Iron TIBC % Saturation Transferrin Ferritin 20.3 Total Bilirubin AST ALT Alkaline Phosphatase Lactate Dehydrogenase 223 H Troponin T < 0.010 Total Protein Albumin Albumin/Globulin Ratio Vitamin B12 Folate Blood Type Antibody Screen Crossmatch 10/02/17 10/02/17 10/03/17 16:44 16:44 06:50 WBC 8.4 RBC 2.90 L Hgb 7.7 L Hct 23.9 L MCV 82 MCH 27 L MCHC 33 RDW 20.9 H Plt Count 249 Lymph % (Auto) 17.6 [place] % (Auto) 7.4 H Eos % (Auto) 1.8 Baso % (Auto) 0.3 Lymph # 1.5 [place] # 0.6 Eos # 0.2 Baso # 0.0 Seg Neutrophils % 72.9 H Seg Neutrophils # 6.1 PT INR Sodium Potassium Chloride Carbon Dioxide Anion Gap BUN Creatinine Estimated GFR BUN/Creatinine Ratio Glucose Hemoglobin A1c Calcium Iron TIBC % Saturation Transferrin Ferritin Total Bilirubin AST ALT Alkaline Phosphatase Lactate Dehydrogenase Troponin T Total Protein Albumin Albumin/Globulin Ratio Vitamin B12 519.6 Folate 14.77 Blood Type Antibody Screen Crossmatch 10/03/17 10/03/17 06:50 06:50 WBC RBC Hgb Hct MCV MCH MCHC RDW Plt Count Lymph % (Auto) [place] % (Auto) Eos % (Auto) Baso % (Auto) Lymph # [place] # Eos # Baso # Seg Neutrophils % Seg Neutrophils # PT 23.0 H INR 1.90 H Sodium 145 D Potassium 4.2 D Chloride 106.5 Carbon Dioxide 24 Anion Gap 19 BUN 11 Creatinine 0.5 L Estimated GFR > 60 BUN/Creatinine Ratio 22 Glucose 160 H Hemoglobin A1c Calcium 7.7 L Iron TIBC % Saturation Transferrin Ferritin Total Bilirubin AST ALT Alkaline Phosphatase Lactate Dehydrogenase Troponin T Total Protein Albumin Albumin/Globulin Ratio Vitamin B12 Folate Blood Type Antibody Screen Crossmatch
[2017-10-03] MEDS: MIRALAX 3350 PO SCH (09:47)
[2017-10-03] MEDS: PEPCID IV SCH (09:47)
--- NOTE | 2017-10-03 16:08 | Discharge Summary ---
Providers - Providers Date of Admission: 10/01/17 19:47 Date of discharge: 10/03/17 Attending physician: MANDEEP BRUCE 10/02/17 04:02 Consult to Physician [CONS] Routine Consulting Provider: JOYCE NAIR Reason For Exam: Anemia -recurrent Place consult to:: johnathan Notified:: office Phone number called:: [phone] Was contact made?: Yes If yes, spoke with:: jose de jesus Time called:: 09:22 10/02/17 04:06 Consult to Physician [CONS] Routine Consulting Provider: STACEY CHAPA Reason For Exam: Anemia-GI cause?? Notified:: yes Primary care physician: PERSONAL INJURY LEGAL ASSISTANT Hospitalization Condition: Stable Hospital course: Patient is a 62-year-old woman with history of type 2 diabetes mellitus, hypertension, permanent pacemaker, coronary artery disease status post CABG, Aortic mechanical valve replacement in 2008 on Coumadin and chronic blood loss anemia who had extensive work up in the past including colonoscopy, EGD and even a pill camera but no source was identified ([place] ) who presented to [facility] ED with fatigue and bilateral chest pains. She was found to have hemoglobin of 5.3 2v CXR reported as no acute findings -Acute on chronic blood loss anemia: ordered FOBT, she has constipation, ordered enema but she refused, elected to have miralax, transfuse more blood. -Mechanical Aortic Valve on Coumadin, w/o gross signs of bleeding: very complex medical decision of whether Coumadin should be stopped. -Hypokalemia: replete and recheck -DM type 2, diet controlled: add SSI per GI, Dr. Chapa: "(1) Iron deficiency anemia Current Visit: Yes Status: Acute Qualifiers: Iron deficiency anemia type: unspecified iron deficiency Qualified Code(s) : D50.9 - Iron deficiency anemia, unspecified Plan to address problem: - Recurrent anemia with multiple prior GI studies and no gross losses. Dx 8 years ago, and multiple iron infusions/blood transfusion. - Have no plans for inpatient endoscopy since stable; will have the patient f/u in the clinic in a few weeks, and review the records from [place]. - OK to d/c the patient home on PO iron/MVI and with Heme f/u (has seen Dr Nair already). - Will sign off; please call if needed; my card to contact office given to the patient." per Heme/onc, Dr. Cabrales: "CBC improved. She can go home and follow up with Dr. Nair. B12 folate levels within normal limits Subjective Date of service: 10/03/17 Interval history: Patient feels better. Hungry. Received IV iron yesterday." Disposition: [id number] TO HOME OR SELFCARE Time spent for discharge: 34 min Core Measure Documentation - Palliative Care Palliative Care/ Comfort Measures: Not Applicable - Core Measures Any of the following diagnoses?: none - VTE Discharge Requirements Deep Vein Thrombosis/Pulmonary Embolism Present on Admission: No Has pt received <5 days of overlap therapy or INR<2.0: No Anticoagulant overlap therapy prescribed at discharge: No Contraindication No Overlap Therapy order at DC: Not Indicated Exam - Physical Exam Narrative exam: GEN: WDWN, NAD, AWAKE, ALERT, ORIENTATED x 3 HEENT: NCAT, EOMI, PERRL, OP Clear NECK: supple, no adenopathy, no thyromegaly, no JVD CVS/HEART: RRR, NORMAL S1S2, pulses present bilaterally CHEST/LUNGS: CTA B, Symmetrical chest expansion, good air entry bilaterally GI/Abdomen: soft, NTND, good bowel sounds, no guarding or rebound /Bladder: no suprapubic tenderness, no CVA or paraspinal tenderness EXT/Skin: no c/c/e, no obvious rash MSK: FROM x 4 Neuro: CN 2-12 grossly intact, no new focal deficits Psych: calm - Constitutional Vitals: Temp Pulse Resp BP Pulse Ox 97.9 F 76 18 102/55 100 10/03/17 12:27 10/03/17 12:27 10/03/17 12:27 10/03/17 12:27 10/03/17 12:27 Plan Activity: other (no strenous activity until cleared by pcp) Diet: low salt Follow up with: PRIMARY CARE, [Primary Care Provider] - 7 Days JOYCE NAIR MD [Staff Physician] - 7 Days STACEY CHAPA MD [Staff Physician] - 7 Days Forms: Warfarin Discharge Instruction Prescriptions: Docusate Sodium [Colace] 100 mg PO BID #60 capsule Iron,Carbonyl/Ascorbic Acid [Iron 100-Vitamin C Tablet] 1 each PO BID #60 tablet
[2017-10-03] MEDS ORDERED: COUMADIN PO SCH (17:00)
[2017-10-03 18:22] VITALS: BP 115/69
[2017-10-03] MEDS ORDERED: PEPCID PO SCH (22:00)
== END 2017-10-03 20:09 | disposition home or self-care (01) | DRG 812 ==
LOC: ED 16:56 → 4A 19:47
PROVIDERS: ADMIT Internal Medicine; ATTEND Internal Medicine
PROC: 30233N1 Transfusion of Nonautologous Red Blood Cells into Peripheral Vein, Percutaneous Approach (ICD-10-PCS; principal; 2017-10-02)
DX: D50.9 Iron deficiency anemia, unspecified (principal); J45.909 Unspecified asthma, uncomplicated; I25.10 Atherosclerotic heart disease of native coronary artery without angina pectoris; Z88.6 Allergy status to analgesic agent; E11.9 Type 2 diabetes mellitus without complications; Z95.0 Presence of cardiac pacemaker; Z95.1 Presence of aortocoronary bypass graft; E87.6 Hypokalemia; Z90.710 Acquired absence of both cervix and uterus; Z79.01 Long term (current) use of anticoagulants
CPT/HCPCS: 36415; 71046; 80048; 80053; 82607; 82728; 82747; 82962; 83036; 83550; 83615; 83880; 84484; 85025; 85027; 85610; 86850; 86900; 86901; 86920; 93005; 93010; 99291; J2916; J7030; J7040; P9016